=== PATIENT | female | born 1965 | race Caucasian/White ===

== ENCOUNTER 2018-09-11 09:55 | Inpatient (IN) | payer OTHER ==
[~2018-09-11] VITALS: Ht 157.5 cm; Wt 45.4 kg
[2018-09-11 10:00] VITALS: BP 128/106
--- NOTE | 2018-09-11 10:01 | NUR ---
PT AMBULATES TO BED 9
--- NOTE | 2018-09-11 10:12 | NUR ---
Patient being evaluated by physician at bedside.
[2018-09-11] MEDS ORDERED: diphenhydrAMINE 50 MG/ML VIAL IM ONE (10:20)
[2018-09-11] MEDS ORDERED: LORazepam 2 MG/ML VIAL IM ONE (10:20)
[2018-09-11] MEDS ORDERED: NACL 0.9% 1,000 ML IV ONE (10:20)
[2018-09-11] MEDS ORDERED: HALOPERIDOL IM 5 MG/ML VIAL IM ONE (10:20)
--- NOTE | 2018-09-11 10:50 | NUR ---
bib daughter from [facility] was adviced to go to an emergency room with c/o haven't sleep for 4 nights, continually yelling in her language; Per family, pt is threatening to hurt herself and other people. Pt appears to be in manic state, yelling at staff.
[2018-09-11 11:21] LABS: BASOPHILS % (AUTO) 0.6 % (0.0-2.0); EOSINOPHILS % (AUTO) 0.5 % (0.0-4.0); HEMATOCRIT 40.8 % (36-48); HEMOGLOBIN 13.4 g/dL (12.0-16.0); LYMPHOCYTES # (AUTO) 1.3 K/uL (2.5-16.5); LYMPHOCYTES % (AUTO) 18.8 % (20.5-51.1); MEAN CORPUSCULAR HEMOGLOBIN 30 pg (27-31); MEAN CORPUSCULAR HGB CONC 33 g/dL (33-37); MEAN CORPUSCULAR VOLUME 89.7 fL (80-94); MONOCYTES # (AUTO) 0.5 K/uL (0.8-1.0); NEUTROPHILS # (AUTO) 5.1 K/uL (1.8-7.7); NEUTROPHILS % (AUTO) 73.1 % (42.2-75.2); PLATELET COUNT (AUTO) 272 K/uL (140-450); RED BLOOD CELL COUNT(AUTO) 4.54 MIL/uL (4.20-5.40); RED CELL DISTRIBUTION WIDTH 14.6 % (11.6-13.7); WHITE BLOOD COUNT (AUTO) 6.9 K/uL (4.8-10.8)
[2018-09-11 11:32] LABS: ACETONE, SERUM NEGATIVE (NEGATIVE)
[2018-09-11 11:40] LABS: ALBUMIN 3.5 g/dL (3.4-5.0); ANION GAP 16.3 (8-16); ASPARTATE AMINOTRANSFERASE 16 U/L (15-37); CARBON DIOXIDE 23.7 mmol/L (21-32); CHLORIDE 102 mmol/L (98-107); GFR ARICAN-AMERICAN 75 mL/min (>90); GLUCOSE 98 mg/dL (74-106); SODIUM SERUM 139 mmol/L (136-145); TOTAL BILIRUBIN 0.7 mg/dL (0.0-1.0); UREA NITROGEN, BLOOD 18 mg/dL (7-18)
[2018-09-11 11:42] LABS: ACETAMINOPHEN < 0.5 ug/ml (10-30); SALICYLATE < 2.8 mg/dL (2.8-20.0)
[2018-09-11 11:52] LABS: FREE T4 (FREE THYROXINE) 1.17 ng/dL (0.76-1.46); THYROID STIMULATING HORMONE 0.79 uIU/mL (0.34-3.74)
--- NOTE | 2018-09-11 12:10 | NUR ---
XRAY AT BEDSIDE
[2018-09-11] MEDS ORDERED: KCL 20 MEQ/WATER INJ PREMIX 100 ML IV ONE (12:30)
--- NOTE | 2018-09-11 12:34 | NUR ---
PT TAKEN TO CT VIA LARRY
--- NOTE | 2018-09-11 12:53 | NUR ---
pt returned from ct via gurney accompanied by utility technician and returned to rm 9 without incident
[2018-09-11 14:13] LABS: APPEARANCE,URINE CLEAR (CLEAR); BILIRUBIN,URINE NEGATIVE (NEGATIVE); BLOOD, URINE NEGATIVE (NEGATIVE); COLOR,URINE YELLOW (YELLOW); NITRITE, URINE NEGATIVE (NEGATIVE); UGLUCOSE NEGATIVE (NEGATIVE)
[2018-09-11 14:16] LABS: BARBITURATE, URINE NEG. ng/ml (NEG <=200); BENZODIAZEPINE, URINE NEG. ng/mL (NEG <=200); CANNABINOID, URINE NEG. ng/mL (NEG <=50); COCAINE, URINE NEG. ng/mL (NEG <=300); OPIATE, URINE NEG. ng/mL (NEG <=2000); PHENCYCLIDINE SCREEN,URINE NEG. ng/mL (NEG <=25)
[2018-09-11 14:19] LABS: RBC,URINE 0-5 (RARE) /HPF (0-5)
[2018-09-11 14:21] LABS: LEUKOCYTE ESTERASE ,URINE 1+ (NEGATIVE); WBC,URINE 0-5 (RARE) /HPF (0-5)
--- NOTE | 2018-09-11 14:30 | NUR ---
PATIENT RESTING, DAUGHTER AT BEDSIDE.
--- NOTE | 2018-09-11 15:18 | NUR ---
TELEPSYCH INITIATED AT BEDSIDE. DAUGHTER AT BEDSIDE TO SERVE YARD INSPECTOR.
[2018-09-11] MEDS ORDERED: ACETAMINOPHEN 325 MG TAB PO PRN (15:30)
[2018-09-11] MEDS ORDERED: LORazepam 2 MG/ML VIAL IM/IVP PRN (15:30)
[2018-09-11] MEDS ORDERED: DOCUSATE SODIUM 100 MG GELCAP PO PRN (15:30)
[2018-09-11] MEDS ORDERED: HYDROcodone/APAP 5/325 MG 1 TAB TAB PO PRN (15:30)
[2018-09-11] MEDS ORDERED: ONDANSETRON 4 MG/2 ML VIAL IM/IVP PRN (15:30)
--- NOTE | 2018-09-11 15:58 | NUR ---
TELEPSYCH DOCTOR CALLED BACK AND CLEARED PATIENT. RECOMMENDED DISCHARGE TO [facility]. ED MD WILL BE ADMITING PT FOR OBSERVATION DUE TO HIGH LACTIC ACID LEVELS. PT FAMILY MADE AWARE AND VERBALIZED UNDERSTANDING.
--- NOTE | 2018-09-11 16:14 | NUR ---
1609 PT TAKEN TO MED FLOOR BY RN BRENNA AND EMT XIAO
[2018-09-11 16:15] VITALS: BP 104/56
--- NOTE | 2018-09-11 16:15 | NUR ---
Patient will be admitted to care of DR. ECKERT. Admited to MED SURG. Will go to room 110B. Belongings list completed. Report to ALLEGRA.
--- NOTE | 2018-09-11 16:15 | NUR ---
RECEIVED REPORT FROM ED RN. PT ARRIVED VIA GURNEY. SPEAKS LAOTIAN AND BRAZILIAN. AMBULATORY. SKIN INTACT. AOX2. COOPERATIVE WITH PERIODS OF CONFUSION AND PERIODS OF AGITATION. HX: SCHIZOPHRENIA. FLAT AFFECT. PER DAUGHTER AT BEDSIDE, PT HAS ADMITTED TO AUDITORY AND VISUAL HALLUCINATIONS. PT DENIES SUICIDAL IDEATION AT THIS TIME. K+ RIDER FROM ED INFUSING AT 50ML/HR. IV SITE PATENT AND ASYMPTOMATIC. PLACED ON FALL PRECAUTIONS. ALL SAFETY PRECAUTIONS IN PLACE, WILL CONTINUE TO MONITOR.
[2018-09-11] MEDS: NACL 0.9% 1,000 ML IV SCH (17:17)
--- NOTE | 2018-09-11 17:22 | NUR ---
STARTED RUNNING K RIDER @50 ML/HR WITH NS IVF AT 50 ML/HR DUE TO PT C/O OF IV SITE PAIN.
[2018-09-11 17:59] LABS: MAGNESIUM 1.9 mg/dL (1.8-2.4); PHOSPHORUS 3.7 mg/dL (2.5-4.9)
--- NOTE | 2018-09-11 18:18 | NUR ---
PER LAB, BLOOD CULTURES ALREADY DRAWN. WILL ADMIN SCHEDULED ABX ORDERED.
--- NOTE | 2018-09-11 18:48 | NUR ---
VERIFIED WITH LAB THAT BLOOD CULTURES X2 HAS BEEN DRAWN.
--- NOTE | 2018-09-11 19:21 | NUR ---
ENDORSED POC TO PRODUCT GRADER RN. PT IN STABLE CONDITION.
[2018-09-11 20:10] VITALS: BP 102/56
--- NOTE | 2018-09-11 20:10 | NUR ---
SEEN PT ASLEEP BUT EASILY AROUSABLE. DAUGHTER AT BEDSIDE AND WILL STAY FOR TONIGHT. PT'S DAUGHTER STATED, " SHE HASN'T SLEPT FOR 4 DAYS AND I JUST WANT HER TO SLEEP TONIGHT." INITIAL ASSESSMENT DONE. ASKED DAUGHTER, WHEN WAS HER LAST BM. SHE SAID " PROBABLY A WEEK AGO BECAUSE SHE HASN'T BEEN EATING FOR A WEEK, BUT SHE ATE TODAY THOUGH." VITAL SIGNS CHECKED. PER DAUGHTER, PT CAN WALK AND GO TO THE BATHROOM. PLAN OF CARE DISCUSSED AND DAUGHTER VERBALIZED UNDERSTANDING. SAFETY REINFORCED. WILL CONTINUE TO MONITOR. INFORMED DAUGHTER TO CALL WHEN PT IN NEED, DAUGHTER VERBALIZED UNDERSTANDING.
[2018-09-12 04:35] VITALS: BP 106/66
--- NOTE | 2018-09-12 04:55 | NUR ---
SEEN PT ASLEEP BUT AROUSABLE. DAUGHTER AT BEDSIDE. VITAL SIGNS CHECKED. ASKED DAUGHTER IF PT WENT TO THE BATHROOM. DAUGHTER SAID "NO". TOLD DAUGHTER WHEN PT GOES TO THE BATHROOM TO LET THE NURSE KNOW BECAUSE THE DOCTOR WANTS TO CHECK PT'S BP STANDING UP AND SITTING. DAUGHTER VERBALIZED UNDERSTANDING.
--- NOTE | 2018-09-12 06:55 | NUR ---
PT AWAKE SITTING ON THE EDGE OF THE BED. BLOOD SUGAR CHECKED: 133. NO COVERAGE NEEDED. PO MEDICATIONS GIVEN W/ TEACHINGS. PT WAITING FOR BREAKFAST. PT DENIES ANY NEEDS. Addendum: 09/12/18 at 0704 by Sania Aranda RN WRONG PT DOCUMENTATION
--- NOTE | 2018-09-12 07:04 | NUR ---
WILL ENDORSE CARE TO DAYSHIFT NURSE.
--- NOTE | 2018-09-12 07:19 | NUR ---
PATIENT HAS BEEN SCREENED AND CATEGORIZED HIGH NUTRITION RISK. PATIENT WILL BE SEEN WITHIN 1-2 DAYS OF ADMISSION. 09/12/18-09/13/18 JACKELINE VALDIVIA MS, RDN
--- NOTE | 2018-09-12 07:50 | NUR ---
PATIENT WAS AWAKE, TALKING TO HERSELF. RESPIRATION EVEN, UNLABOR ON ROOM AIR. SKIN DRY AND WARM. IV PATENT AND INTACT. DENIED PAIN AT THIS TIME. PLAN OF CARE WAS DISCUSSED WITH PATIENT AND FAMILY. BED AT LOW POSITION SIDE RAILS UP. CALL LIGHT WITHIN REACH
[2018-09-12 07:54] LABS: BASOPHILS % (AUTO) 0.5 % (0.0-2.0); EOSINOPHILS # (AUTO) 0.1 K/uL (0-0.4); EOSINOPHILS % (AUTO) 1.6 % (0.0-4.0); HEMATOCRIT 37.3 % (36-48); HEMOGLOBIN 12.2 g/dL (12.0-16.0); LYMPHOCYTES # (AUTO) 1.4 K/uL (2.5-16.5); LYMPHOCYTES % (AUTO) 26.5 % (20.5-51.1); MEAN CORPUSCULAR HEMOGLOBIN 30 pg (27-31); MEAN CORPUSCULAR HGB CONC 33 g/dL (33-37); MEAN CORPUSCULAR VOLUME 90.5 fL (80-94); MONOCYTES # (AUTO) 0.4 K/uL (0.8-1.0); MONOCYTES % (AUTO) 7.5 % (1.7-9.3); NEUTROPHILS # (AUTO) 3.4 K/uL (1.8-7.7); NEUTROPHILS % (AUTO) 63.9 % (42.2-75.2); PLATELET COUNT (AUTO) 218 K/uL (140-450); RED BLOOD CELL COUNT(AUTO) 4.13 MIL/uL (4.20-5.40); RED CELL DISTRIBUTION WIDTH 15.3 % (11.6-13.7); WHITE BLOOD COUNT (AUTO) 5.3 K/uL (4.8-10.8)
[2018-09-12 08:00] VITALS: BP_SYST 104; BP_SYST 110; BP_SYST 111; BP_DIAS 56; BP_DIAS 69; BP_DIAS 70
[2018-09-12 08:07] LABS: ANION GAP 9.6 (8-16); CARBON DIOXIDE 27.3 mmol/L (21-32); CREATININE 0.8 mg/dL (0.6-1.3); POTASSIUM 3.9 mmol/L (3.5-5.1)
[2018-09-12] MEDS: NACL 0.9% 1,000 ML IV SCH ×2 (09:31→20:02)
--- NOTE | 2018-09-12 10:00 | NUR ---
PATIENT WAS RESTING COMFORTABLY. RESPIRATION EVEN, UNLABOR ON ROOM AIR. NO DISTRESS NOTED AT THIS TIME
[2018-09-12 11:33] LABS: CHOL/HDL RATIO 3.7 (1-4.5)
--- NOTE | 2018-09-12 11:52 | NUR ---
CALLED THE PSYCH CHAIN SALES CONSULTANT SERVICE SPOKE WITH DREA NOTIFIED PSYCH CONSULT SHE SAID DR SQUIRES IS CHAIN SALES CONSULTANT SHE WILL PAGE HIM.
--- NOTE | 2018-09-12 12:10 | NUR ---
PATIENT WAS AWAKE, BECAME RESTLESS, AND AGITATED, WANTING "ALCOHOL AND COFFEE" PER DAUGHTER. COFFEE WAS OFFERED. MED WAS GIVEN PER ORDER
--- NOTE | 2018-09-12 12:58 | NUR ---
09/12/18 RD INITIAL ASSESSMENT COMPLETED PLEASE REFER TO NUTRITION ASSESSMENT UNDER CARE ACTIVITY FOR ESTIMATED NUTRITIONAL NEEDS. RD RECOMMENDATIONS: 1. CONTINUE ON REGULAR DIET TOLERATED. 2. CONSULT RDN PRN. 3. RD WILL F/U 3-5 DAYS; MODERATE RISK. JACKELINE VALDIVIA MS, RDN
--- NOTE | 2018-09-12 14:15 | NUR ---
PATIENT WAS SLEEPING COMFORTABLY. RESPIRATION EVEN, UNLABOR ON ROOM AIR. NO DISTRESS NOTED AT THIS TIME. FAMILY AT BEDSIDE. CALL LIGHT WITHIN REACH
[2018-09-12 16:00] VITALS: BP 98/56
--- NOTE | 2018-09-12 16:00 | NUR ---
PATIENT WAS AWAKE, ALERT. RESPIRATION EVEN, UNLABOR ON ROOM AIR. DENIED PAIN AT THIS TIME. FAMILY AT BEDSIDE. CALL LIGHT WITHIN REACH
--- NOTE | 2018-09-12 18:42 | NUR ---
PATIENT WAS SLEEPING COMFORTABLY. RESPIRATION EVEN, UNLABOR ON ROOM AIR. IV PATENT AND INTACT. MED WAS GIVEN PER ORDER. NO DISTRESS NOTED AT THIS TIME. FAMILY AT BEDSIDE. CALL LIGHT WITHIN REACH
--- NOTE | 2018-09-12 19:27 | NUR ---
RECEIVED BEDSIDE REPORT FROM ALLEGRA CISNEROS, PATIENT IN BED, FAMILY AT BEDSIDE, ON RA, NO SIGNS OF ACUTE DISTRESS, IV IN LEFT HAND 22G INFUSING ROCEPHIN AT 100 ML/ HR. PATIENT BECAME AGITATED DURING ASSESSMENT. EXPLAINED PLAN OF CARE TO FAMILY. UPDATED BORED, CALL LIGHT WITHIN REACH. WILL CONTINUE TO MONITOR.
--- NOTE | 2018-09-12 19:27 | NUR ---
ENDORSEMENT GIVEN TO SALES AND MARKETING AGENT NURSE. PATIENT IS STABLE AT THIS TIME
[2018-09-12] MEDS: OLANZapine 5 MG TAB PO SCH (20:01)
[2018-09-12] MEDS ORDERED: QUEtiapine FUMARATE 25 MG TAB PO SCH (21:00)
--- NOTE | 2018-09-12 21:00 | NUR ---
FAMILY AT BEDSIDE, QUESTIONS ANSWERED REGARDING ZYPREXA, CALL LIGHT WITHIN REACH, WILL CONTINUE TO MONITOR.
--- NOTE | 2018-09-12 23:50 | NUR ---
PATIENT ASLEEP IN BED, FAMILY AT BEDSIDE, V/S TAKEN, WILL CONTINUE TO MONITOR.
[2018-09-12 23:53] VITALS: BP 104/57
--- NOTE | 2018-09-13 01:44 | NUR ---
PATIENT SLEEPING IN BED, FAMILY AT BEDSIDE, CALL LIGHT WITHIN REACH, WILL CONTINUE TO MONITOR.
--- NOTE | 2018-09-13 02:05 | NUR ---
IV HIGH PRESSURE ALARM, FLUSHED IV WITH 10 ML NS, PATIENT DENIES PAIN, WILL CONTINUE TO MONITOR.
--- NOTE | 2018-09-13 04:16 | NUR ---
PATIENT ASLEEP IN BED, CALL LIGHT WITHIN REACH, WILL CONTINUE TO MONITOR.
--- NOTE | 2018-09-13 07:15 | NUR ---
RECEIVED PT REPORT FROM WORKERS COMPENSATION ADJUSTER NURSE. PT IS SLEEPING AT THIS TIME, NO S/S OF DISTRESS, SOB, OR C/O PAIN. IS AT BEDSIDE. IV SITE NOTED ON THE L HAND, 22 GAUGE, INFUSING NS 60 ML/HR. PT ON ROOM AIR. SKIN IS INTACT. PT ON REGULAR DIET. FALL PRECAUTIONS IN PLACE. CALL LIGHT WITHIN REACH. WILL CONTINUE TO MONITOR.
--- NOTE | 2018-09-13 07:35 | NUR ---
ENDORSED PATIENT TO DAY SHIFT NURSE, PATIENT STABLE.
[2018-09-13 08:00] VITALS: BP 114/63
[2018-09-13] MEDS: OLANZapine 5 MG TAB PO SCH (08:50)
--- NOTE | 2018-09-13 09:00 | NUR ---
PT ATE ABOUT 95% OF HER BREAKFAST. IS AT BEDSIDE. PT IS IN NO DISTRESS, NO SOB, NO C/O PAIN. RESTING COMFORTABLY IN BED AT THIS TIME. IV IS PATENT AND INTACT, NS INFUSING WELL.
[2018-09-13 10:35] LABS: BASOPHILS % (AUTO) 0.3 % (0.0-2.0); EOSINOPHILS # (AUTO) 0.2 K/uL (0-0.4); EOSINOPHILS % (AUTO) 2.7 % (0.0-4.0); HEMATOCRIT 35.3 % (36-48); HEMOGLOBIN 11.6 g/dL (12.0-16.0); LYMPHOCYTES # (AUTO) 1.1 K/uL (2.5-16.5); LYMPHOCYTES % (AUTO) 16.8 % (20.5-51.1); MEAN CORPUSCULAR HEMOGLOBIN 30 pg (27-31); MEAN CORPUSCULAR HGB CONC 33 g/dL (33-37); MEAN CORPUSCULAR VOLUME 90.6 fL (80-94); MONOCYTES # (AUTO) 0.4 K/uL (0.8-1.0); MONOCYTES % (AUTO) 6.1 % (1.7-9.3); NEUTROPHILS # (AUTO) 4.7 K/uL (1.8-7.7); NEUTROPHILS % (AUTO) 74.1 % (42.2-75.2); PLATELET COUNT (AUTO) 184 K/uL (140-450); RED CELL DISTRIBUTION WIDTH 14.7 % (11.6-13.7); WHITE BLOOD COUNT (AUTO) 6.4 K/uL (4.8-10.8)
[2018-09-13 10:44] LABS: ANION GAP 8.6 (8-16); CARBON DIOXIDE 28.6 mmol/L (21-32); CREATININE 0.8 mg/dL (0.6-1.3); POTASSIUM 3.2 mmol/L (3.5-5.1)
[2018-09-13 10:46] LABS: PHOSPHORUS 3.5 mg/dL (2.5-4.9)
--- NOTE | 2018-09-13 11:24 | NUR ---
PT RESTING QUIETLY IN BED, NO S/S OF DISTRESS, NO SOB. IS AT BEDSIDE. WILL CONTINUE TO MONITOR. CALL LIGHT IS WITHIN REACH.
--- NOTE | 2018-09-13 13:20 | NUR ---
PT RESTING IN BED COMFORTABLY, NO S/S OF DISTRESS OR C/O PAIN. FAMILY MEMBERS VISITING AT BEDSIDE. IV IS INFUSING WELL. CALL LIGHT IS WITHIN REACH. FALL PRECAUTIONS IN PLACE. WILL CONTINUE TO MONITOR.
[2018-09-13] MEDS ORDERED: OLAN5TAB30 PO (14:58)
[2018-09-13 15:32] VITALS: BP 101/65
--- NOTE | 2018-09-13 15:45 | NUR ---
DR LOVETT HAS CLEARED PT FOR DISCHARGE.
--- NOTE | 2018-09-13 16:10 | NUR ---
PT HAS DISCHARGED. PT AND DAUGHTER WERE GIVEN DISCHARGE INSTRUCTIONS AND THE DISCHARGE PRESCRIPTION, TO WHICH THEY VERBALIZED UNDERSTANDING. DISCHARGE PAPERWORK SIGNED BY DAUGHTER. PT'S IV SITE DC'D, WRIST BANDS REMOVED. PT HAD ALREADY RECEIVED THE FLU VACCINE IN JUNE OF THIS YEAR. PT DOES NOT QUALIFY FOR PNEUMONIA VACCINE DUE TO AGE. PT LEFT WITH ALL HER BELONGINGS IN A STABLE CONDITION, ACCOMPANIED BY DAUGHTER.
== END 2018-09-13 16:10 | disposition home or self-care (01) | DRG 720 ==
LOC: MED 09:55 → MTU 15:35
PROVIDERS: ADMIT General Practice; ATTEND General Practice
DX: A41.9 Sepsis, unspecified organism (principal); G93.41 Metabolic encephalopathy; F20.9 Schizophrenia, unspecified; E86.0 Dehydration; E87.6 Hypokalemia; N39.0 Urinary tract infection, site not specified; I16.1 Hypertensive emergency; Z91.14 Patient's other noncompliance with medication regimen; Z83.3 Family history of diabetes mellitus
CPT/HCPCS: 36415; 70450; 71045; 80048; 80053; 80305; 81001; 82009; 82140; 82550; 83036; 83605; 83690; 83735; 83880; 84100; 84134; 84439; 84443; 84479; 84484; 85025; 85610; 85730; 87040; 87081; 87086; 93005; 93880; 96361; 96365; 96366; 96372; 99285; C1758; G0480; G0482; J0696; J1200; J1630; J2060; J3480; J7030; J7042; J7060; Q0092

== ENCOUNTER 2018-09-15 18:08 | Inpatient (IN) | payer OTHER ==
[~2018-09-15] VITALS: Ht 160 cm; Wt 56.7 kg
[2018-09-15] MEDS: ASPIRIN 81 MG TAB.CHEW PO ONE (00:40)
[~2018-09-15 18:08] MED LIST: OLAN5TAB30 PO
[2018-09-15 18:09] VITALS: BP 102/75
--- NOTE | 2018-09-15 18:09 | NUR ---
RAFAT BLAS ALS TO ER BED 09
--- NOTE | 2018-09-15 18:18 | NUR ---
52 YO F PT BIB EMS C/O DRUG INGESTION. POSSIBLE INTAKE OF ZYPREXA 5MG (30 TABLETS). PT DOES NOT SPEAK UPPER SORBIAN, PER DAUGHTER PT HAD NO THOUGHTS OF SI. PT SPEECH APPEARS CLEAR. PT IS AAOX4 PER DAUGHTER. DTR STATES THAT PT IS NEURO TO BASELINE AND ACTING APPROPRIATELY. PT RR EVEN AND UNLABORED LUNGS BL CLEAR, CMS INTACT. NO N/V/D. PERRLA INTACT, PUPILS 3MM. ABD SOFT, NON-TENDER. BOWEL SOUNDS ACTIVE X 4. ER MD NOTIFIED OF PT STATUS. PT NEEDS MET. SAFETY PRECAUTIONS IN PLACE. DTR AT BEDSIDE. WILL CONTINUE TO CLOSELY MONITOR.
--- NOTE | 2018-09-15 18:20 | NUR ---
CONTACTED POISON CONTROL. SPOKE WITH BRENNA, RECOMMENDED MONITOR, MONITOR FOR CANDY CUTTER HAND DEPRESSION, DROWSINESS, RECOMMENDED CHARCOAL, MONITOR FOR ANTICHOLINERGIC EFFECTS, AGITATION, DELIRIUM AND HYPOTENSION. MONITOR FOR A 6 HOUR PERIOD.
[2018-09-15] MEDS ORDERED: NACL 0.9% 1,000 ML IV ONE (18:35)
--- NOTE | 2018-09-15 18:50 | NUR ---
pt restless in the hospital [facility] at this time. daughter and son at bedside. pt vss, rr even and unlabored. safety precautions in place. will continue to closely monitor.
[2018-09-15 19:07] LABS: BASOPHILS # (AUTO) 0.1 K/uL (0.00-0.22); BASOPHILS % (AUTO) 0.8 % (0.0-2.0); EOSINOPHILS # (AUTO) 0.1 K/uL (0-0.4); EOSINOPHILS % (AUTO) 1.1 % (0.0-4.0); HEMATOCRIT 36.6 % (36-48); HEMOGLOBIN 12.1 g/dL (12.0-16.0); LYMPHOCYTES # (AUTO) 1.7 K/uL (2.5-16.5); LYMPHOCYTES % (AUTO) 28.7 % (20.5-51.1); MEAN CORPUSCULAR HEMOGLOBIN 30 pg (27-31); MEAN CORPUSCULAR HGB CONC 33 g/dL (33-37); MONOCYTES # (AUTO) 0.5 K/uL (0.8-1.0); MONOCYTES % (AUTO) 8.1 % (1.7-9.3); NEUTROPHILS # (AUTO) 3.7 K/uL (1.8-7.7); NEUTROPHILS % (AUTO) 61.3 % (42.2-75.2); PLATELET COUNT (AUTO) 173 K/uL (140-450); RED BLOOD CELL COUNT(AUTO) 4.07 MIL/uL (4.20-5.40); RED CELL DISTRIBUTION WIDTH 14.7 % (11.6-13.7)
--- NOTE | 2018-09-15 19:12 | NUR ---
report given to ALLEGRA field
[2018-09-15 19:28] LABS: ANION GAP 12.1 (8-16); ASPARTATE AMINOTRANSFERASE 17 U/L (15-37); CARBON DIOXIDE 25.7 mmol/L (21-32); CHLORIDE 106 mmol/L (98-107); CREATININE 0.8 mg/dL (0.6-1.3); GFR ARICAN-AMERICAN 98 mL/min (>90); GLUCOSE 103 mg/dL (74-106); SODIUM SERUM 141 mmol/L (136-145); TOTAL BILIRUBIN 0.3 mg/dL (0.0-1.0); UREA NITROGEN, BLOOD 20 mg/dL (7-18)
[2018-09-15 19:30] LABS: POTASSIUM 2.8 mmol/L (3.5-5.1)
--- NOTE | 2018-09-15 20:05 | NUR ---
# 14 FR Urinary catheter inserted utilizing sterile technique. Immediate return. Urine sample collected and sent to lab. Pt tolerated procedure well.
[2018-09-15 20:55] LABS: APPEARANCE,URINE CLEAR (CLEAR); BILIRUBIN,URINE NEGATIVE (NEGATIVE); BLOOD, URINE NEGATIVE (NEGATIVE); COLOR,URINE YELLOW (YELLOW); LEUKOCYTE ESTERASE ,URINE NEGATIVE (NEGATIVE); NITRITE, URINE NEGATIVE (NEGATIVE); UGLUCOSE NEGATIVE (NEGATIVE)
[2018-09-15 21:02] LABS: BARBITURATE, URINE NEG. ng/ml (NEG <=200); BENZODIAZEPINE, URINE NEG. ng/mL (NEG <=200); CANNABINOID, URINE NEG. ng/mL (NEG <=50); COCAINE, URINE NEG. ng/mL (NEG <=300); OPIATE, URINE NEG. ng/mL (NEG <=2000); PHENCYCLIDINE SCREEN,URINE NEG. ng/mL (NEG <=25)
[2018-09-15] MEDS ORDERED: POTASSIUM CHLORIDE 10 MEQ TABER PO ONE (21:40)
--- NOTE | 2018-09-15 21:42 | NUR ---
LASHA FROM [facility] CALLED. UPDATE ON VS, LABS AND MENTAL STATUS. RECOMMENDATIONS: TYLENOL AND ASPIRIN LEVELS. ER MD MADE AWARE. WILL CONTINUE TO MONITOR.
[2018-09-15] MEDS ORDERED: POTASSIUM CHLORIDE 20% 40 MEQ/15 ML UDC PO ONE (22:25)
[2018-09-15 22:45] LABS: ACETAMINOPHEN < 0.5 ug/ml (10-30); SALICYLATE < 2.8 mg/dL (2.8-20.0)
--- NOTE | 2018-09-15 23:06 | NUR ---
Dr. Lee evaluating patient at bedside.
[2018-09-15] MEDS ORDERED: ONDANSETRON 4 MG/2 ML VIAL IM/IVP PRN (23:25)
[2018-09-15] MEDS ORDERED: ACETAMINOPHEN 325 MG TAB PO PRN (23:25)
[2018-09-15] MEDS ORDERED: DOCUSATE SODIUM 100 MG GELCAP PO PRN (23:25)
[2018-09-15] MEDS ORDERED: HYDROcodone/APAP 7.5/325 MG 1 TAB PO PRN (23:25)
[2018-09-15] MEDS ORDERED: LORazepam 2 MG/ML VIAL IVP ONE (23:35)
[2018-09-15] MEDS ORDERED: LORazepam 2 MG/ML VIAL IVP PRN (23:35)
[2018-09-15] MEDS ORDERED: KCL 20 MEQ/WATER INJ PREMIX 200 ML IV ONE (23:40)
--- NOTE | 2018-09-16 | NUR ---
Patient will be admitted to care of Dr. Molina. Admited to Tele. Will go to room 120B. Belongings list completed. Report to Ignacio DINH.
--- NOTE | 2018-09-16 | NUR ---
ADMITTED THIS 52 YEAR OLD FEMALE FROM ER PER LARRY WITH CC OF DRUG INGESTION (ZYPREXA), TRANSFERRED TO BED, ASSESSMENT DONE, HX OBTAINED FROM DAUGHTER YUNI, PT AWAKE, OCCASIONALLY MUMBLING WITH INCOMPREHENSIBLE WORDS PER FAMILY MEMBERS, RESTLESS AT TIMES WITH JERKY MOVEMENTS OF ARMS AND LEGS, UNABLE TO TAKE VITAL SIGNS AT THIS TIME DUE TO PT'S CONDITION, WILL GIVE ATIVAN PRN ORDERED, FAMILY MEMBERS AT BEDSIDE TO ASSIST IN TRANSLATING, SAFETY MEASURES IN PLACE, SIDE RAILS PADDED AND UP FOR SEIZURE AND FALL PRECAUTION, CALL LIGHT WITHIN REACH.
[2018-09-16] MEDS: DEXT 5% /NACL 0.9% 1,000 ML IV SCH ×3 (00:17→22:25)
[2018-09-16 00:30] VITALS: BP 131/78
[2018-09-16] MEDS: ASPIRIN 81 MG TAB.CHEW PO ONE (00:30)
--- NOTE | 2018-09-16 00:30 | NUR ---
ATIVAN IVP GIVEN ORDERED, WITH GOOD RESULT, PT SLEEPING BUT WITH OCCASIONAL JERKY MOVEMENTS, VITAL SIGNS STABLE, IVF OF D5 NS AT 60ML STARTED AND K-RIDER IVPB INITIATED, SISTER AND DAUGHTER AT BEDSIDE, ALL NEEDS ATTENDED.
[2018-09-16 00:39] LABS: PROTHROMBIN TIME 9.7 secs (10.8-13.4)
--- NOTE | 2018-09-16 00:40 | NUR ---
PT UNABLE TO TAKE ASPIRIN AT THIS TIME, PT SLEEPING AFTER ATIVAN WAS GIVEN, DR CHAN MADE AWARE.
[2018-09-16 00:41] LABS: CHOL/HDL RATIO 3.2 (1-4.5); FREE T4 (FREE THYROXINE) 0.93 ng/dL (0.76-1.46); MAGNESIUM 1.8 mg/dL (1.8-2.4); PHOSPHORUS 2.7 mg/dL (2.5-4.9); THYROID STIMULATING HORMONE 1.16 uIU/mL (0.34-3.74)
[2018-09-16] MEDS ORDERED: MECLIZINE 25 MG TAB PO PRN (02:35)
--- NOTE | 2018-09-16 02:49 | NUR ---
PT SLEEPING BUT OCCASIONALLY TWITCHING AND JERKING MOVEMENT OF THE ARMS AND LEGS NOTED, 2ND BAG OF K-RIDER STARTED.
--- NOTE | 2018-09-16 03:10 | NUR ---
PT TAKEN BY BED TO CT DEPT FOR CT OF HEAD AND ABDOMEN/PELVIS, ACCOMPANIED BY CHEMICAL PRODUCTION ENGINEER GWENDOLYN AND SISTER.
--- NOTE | 2018-09-16 03:51 | NUR ---
PT BACK FROM CT DEPT, PT SLEEPING WITH OCCASIONAL TWITCHING AND JERKING MOVEMENT, RESUMED IVF AT 100ML/H AND K-RIDER IVPB, PT MUMBLING AND RESTLESS DURING VITAL SIGNS TAKING, SISTER AT BEDSIDE TO CALM PT DOWN, VITAL SIGNS STABLE, UNABLE TO DO ORTHOSTATIC VITAL SIGNS DUE TO PT'S CONDITION, WILL ENDORSE, PT INCONTINENT OF URINE, PERINEAL CARE DONE BY JAVA ENGINEER, CONTINUE TO MONITOR CLOSELY.
[2018-09-16 04:00] VITALS: BP 132/68
--- NOTE | 2018-09-16 05:11 | NUR ---
PT RESTLESS AND AGITATED, DR CHAN MADE AWARE, WILL ORDER ATIVAN 1MG PRN FOR AGITATION, WILL CARRY OUT ORDER.
[2018-09-16] MEDS: LORazepam 2 MG/ML VIAL IVP PRN (05:16)
--- NOTE | 2018-09-16 06:20 | NUR ---
PT SLEEPING WITH OCCASIONAL RESTLESSNESS, ST ON TELE 110'S WHEN RESTLESS BUT GOES DOWN TO 90'S WHEN CALM, NO DISTRESS NOTED, FAMILY MEMBERS AT BEDSIDE, IVF INFUSING WELL, MONITORED CLOSELY.
--- NOTE | 2018-09-16 07:10 | NUR ---
RECEIVED PT REPORT FROM LICENSED SURVEYOR NURSE AUBRIE. OT IS ASLEEP AT THIS TIME, WITH FAMILY MEMBERS AT BEDSIDE. NO S/S OF ACUTE DISTRESS, SOB, OR C/O PAIN NOTED. PT IS ON ROOM AIR, SKIN IS INTACT. SEIZURE PRECAUTIONS IN PLACE. IV SITE NOTED ON THE R FA, 20 G, INFUSING D5NS 100 ML/HR. PT IS CURRENTLY NPO. BED LOW, CALL LIGHT WITHIN REACH. WILL CONTINUE TO MONITOR.
[2018-09-16 07:20] LABS: BASOPHILS % (AUTO) 0.2 % (0.0-2.0); EOSINOPHILS % (AUTO) 0.1 % (0.0-4.0); HEMOGLOBIN 13.2 g/dL (12.0-16.0); LYMPHOCYTES # (AUTO) 0.5 K/uL (2.5-16.5); LYMPHOCYTES % (AUTO) 4.8 % (20.5-51.1); MEAN CORPUSCULAR HEMOGLOBIN 30 pg (27-31); MEAN CORPUSCULAR HGB CONC 32 g/dL (33-37); MEAN CORPUSCULAR VOLUME 91.4 fL (80-94); MONOCYTES # (AUTO) 0.4 K/uL (0.8-1.0); MONOCYTES % (AUTO) 4.4 % (1.7-9.3); NEUTROPHILS # (AUTO) 8.7 K/uL (1.8-7.7); NEUTROPHILS % (AUTO) 90.5 % (42.2-75.2); PLATELET COUNT (AUTO) 194 K/uL (140-450); RED BLOOD CELL COUNT(AUTO) 4.49 MIL/uL (4.20-5.40); RED CELL DISTRIBUTION WIDTH 15.2 % (11.6-13.7); WHITE BLOOD COUNT (AUTO) 9.6 K/uL (4.8-10.8)
--- NOTE | 2018-09-16 07:27 | NUR ---
PT SLEEPING, NO SIGNS OF DISTRESS, IVF INFUSING WELL, FAMILY MEMBERS AT BEDSIDE, REPORT GIVEN TO GWENDOLYN DINH FOR CONTINUITY OF CARE.
[2018-09-16 07:34] LABS: ANION GAP 14.3 (8-16); CARBON DIOXIDE 24.3 mmol/L (21-32); CREATININE 0.8 mg/dL (0.6-1.3); POTASSIUM 3.6 mmol/L (3.5-5.1)
[2018-09-16 08:00] VITALS: BP 98/73
--- NOTE | 2018-09-16 08:48 | NUR ---
PATIENT HAS BEEN SCREENED AND CATEGORIZED HIGH NUTRITION RISK. PATIENT WILL BE SEEN WITHIN 1-2 DAYS OF ADMISSION. 09/16/18-09/17/[address]
--- NOTE | 2018-09-16 09:24 | NUR ---
PT HAVING PT EVAL AT THIS TIME. Addendum: 09/16/18 at 1016 by Adilia Velazco RN PER PHYSICAL THERAPIST, PATIENT WAS NOT ABLE TO GET UP FOR PT EVAL. PATIENT IS ASLEEP. DAUGHTERS AT BEDSIDE.
--- NOTE | 2018-09-16 09:26 | NUR ---
DR BAEZ NOTIFIED OF PT'S TROPONIN 1.199
--- NOTE | 2018-09-16 09:45 | NUR ---
VITAL SIGNS RECHECKED, CURRENT FINDINGS: BP 113/76, O2 92, TEMP 100.6, HR 103, RR 18. Addendum: 09/16/18 at 1015 by Adilia Velazco RN DR BEAZ NOTIFIED OF PT'S ELEVATED TEMP. COOLING MEASURES IN PLACE. PT IS CURRENTLY SLEEPING AND UNABLE TO TAKE PO MEDICINE. WILL CONTINUE TO MONITOR PT.
--- NOTE | 2018-09-16 09:56 | NUR ---
PT CURRENTLY HAVING EKG
[2018-09-16] MEDS ORDERED: ENOXAPARIN 60 MG/0.6 ML SYR SUBQ SCH (10:30)
[2018-09-16] MEDS: KETOROLAC 15 MG/ML VIAL IVP PRN ×2 (11:13→22:20)
--- NOTE | 2018-09-16 11:22 | NUR ---
VITAL SIGNS AND TEMPERATURE RECHECKED, PT'S CURRENT TEMP IS 99.9. COOLING MEASURES STILL IN PLACE. WILL CONTINUE TO MONITOR.
[2018-09-16 12:00] VITALS: BP 106/84
--- NOTE | 2018-09-16 12:53 | NUR ---
RECHECKED PT'S TEMP, IT IS 100.6 AT THIS TIME. COOLING MEASURES IN PLACE, BLANKETS OFF, ROOM COOLED DOWN. IV TORADOL ALREADY ADMINISTERED AT 11:15. WILL CONTINUE TO MONITOR. MD IS AWARE OF PT'S ELEVATED TEMP.
--- NOTE | 2018-09-16 13:41 | NUR ---
IS AWARE OF PT'S INCREASED TROPONIN OF 1.793
--- NOTE | 2018-09-16 13:58 | NUR ---
ORAL TEMP RECHECKED, 98.6 AT THIS TIME. WILL CONTINUE TO MONITOR PT. Addendum: 09/16/18 at 1405 by Adilia Velazco RN PT IS CONTINUING TO SLEEP, DAUGHTERS ARE AT BEDSIDE.
--- NOTE | 2018-09-16 15:21 | NUR ---
CHECKED PT'S RECTAL TEMP - 102.5. MD IS AWARE. COOLING MEASURES IN PLACE. ROOM COOLED DOWN. ALL BLANKETS TAKEN OFF EXCEPT FOR ONE THIN SHEET FOR PT'S COMFORT. DAUGHTERS AT BEDSIDE. WILL CONTINUE TO MONITOR.
--- NOTE | 2018-09-16 15:39 | NUR ---
JUST RECHECKED PT'S VITALS. FINDINGS ARE: BP 114/89, TEMP 101.1 (AXILLARY), HR 117, O2 92% (ROOM AIR), RESP 18. ICE PACKS STILL IN PLACE. PT IS SLEEPING AND APPEARS TO BE SHAKING IF SHE IS COLD. DAUGHTERS ARE AT BEDSIDE. CALL LIGHT WITHIN REACH. WILL CONTINUE TO MONITOR. MD IS AWARE OF ELEVATED TEMP.
[2018-09-16 16:00] VITALS: BP 114/89
[2018-09-16] MEDS ORDERED: KETOROLAC 15 MG/ML VIAL IVP SCH (16:05)
[2018-09-16] MEDS ORDERED: KETOROLAC 30 MG/ML VIAL IVP SCH (16:10)
--- NOTE | 2018-09-16 16:20 | NUR ---
ADMINISTERED 15 MG TORADOL IV FOR PT'S ELEVATED FEVER.
--- NOTE | 2018-09-16 18:02 | NUR ---
RECHECKED VITAL SIGNS AT 18:00. VITAL SIGNS ARE FOLLOWS: BP 115/71, HR 94, O2 94 (ROOM AIR), TEMP 101.3 (AXILLARY), RR 20. MAINTAINING COOLING MEASURES (ICE PACKS, NO BLANKETS, COOL ROOM). WILL CONTINUE TO MONITOR. PT'S FAMILY AT BEDSIDE.
--- NOTE | 2018-09-16 19:31 | NUR ---
PT ENDORSED TO SENIOR IT AUDITOR NURSE IN STABLE CONDITION.
--- NOTE | 2018-09-16 19:32 | NUR ---
RECEIVED REPORT FROM DAY SHIFT NURSE GWENDOLYN-RN AT BEDSIDE. FAMILY AT BEDSIDE. PT SLEEPING AOX1-CONFUSED, SPEAKS LAUTIAN/MOSOTHO. ON ROOM AIR WITH RIGHT FA @20G INFUSING D5%/ NS 0/9% @ 100ML/HR. DISCUSSED PLAN OF CARE HOWEVER PT IS CONFUSED ACCORDING TO DAUGHTER. NO S/S OF RESPIRATORY DISTRESS OR DISCOMFORT NOTED AT THIS TIME. BED IN LOWEST POSITION, BED BREAKS ON, BOTH SIDE RAILS UP AND FALL PRECAUTIONS IN PLACE. SEIZURE PRECAUTIONS IN PLACE. BEDSIDE TABLE AND CALL LIGHT ARE WITHIN REACH. WILL CONTINUE TO MONITOR.
[2018-09-16 20:00] VITALS: BP 117/69
--- NOTE | 2018-09-16 20:00 | NUR ---
VITAL SIGNS TAKEN AND TOLERATED WELL. INCREASED TEMPERATURE NOTED. EDUCATED FAMILY ON ONLY USING BED SHEET FOR COMFORT MEASURES AND USING ICE PACKS TO DECREASE TEMPERATURE. FAMILY CONTINUES TO COVER PT WITH BLANKET WHEN PT SAYS SHE IS COLD. WILL CONTINUE TO EDUCATE. NO S/S OF RESPIRATORY DISTRESS OR DISCOMFORT NOTED AT THIS TIME. WILL CONTINUE TO MONITOR.
[2018-09-16] MEDS: ENOXAPARIN 60 MG/0.6 ML SYR SUBQ SCH (20:38)
--- NOTE | 2018-09-16 20:38 | NUR ---
SCHEDULED MEDICATION LOVENOX GIVEN SUBQ ON RIGHT SIDE OF UMBILICAL ABDOMEN. NO S/S OF RESPIRATORY DISTRESS OR DISCOMFORT NOTED AT THIS TIME. WILL CONTINUE TO MONITOR.
--- NOTE | 2018-09-16 22:00 | NUR ---
TEMPERATURE HAS INCREASED TO 102.2F. EDUCATED PT FAMILY THAT PT WILL CONTINUE TO HAVE A TEMPERATURE UNTIL THEY STOP TO COVER PT WITH BLANKETS WHEN SHE STATES THAT SHE IS COLD. WILL MEDICATE WITH TORADOL. NO S/S OF RESPIRATORY DISTRESS OR DISCOMFORT NOTED AT THIS TIME. WILL CONTINUE TO MONITOR.
[2018-09-17] VITALS: BP 119/75
--- NOTE | 2018-09-17 | NUR ---
VITAL SIGNS TAKEN AND TOLERATED WELL. TEMPERATURE HAS DECREASED TO 100.2F. FOUND PT WITH BLANKETS AND EDUCATED PT TO NOT COVER PT WITH BLANKET WHEN SHE STATES SHE IS COLD. PT WILL CONTINUE TO HAVE A FEVER IF SHE IS COVERED WITH BLANKET. LEFT ONLY BED SHEET AND ICE PACKS. NO S/S OF RESPIRATORY DISTRESS OR DISCOMFORT NOTED AT THIS TIME. WILL CONTINUE TO MONITOR.
--- NOTE | 2018-09-17 02:00 | NUR ---
PT CONTINUES TO SLEEP. NO S/S OF RESPIRATORY DISTRESS OR DISCOMFORT NOTED AT THIS TIME. WILL CONTINUE TO MONITOR.
[2018-09-17 04:00] VITALS: BP 121/85
--- NOTE | 2018-09-17 04:00 | NUR ---
VITAL SIGNS TAKEN AND TOLERATED WELL. TEMPERATURE DECREASING. WILL CONTINUE COOLING MEASURES. NO S/S OF RESPIRATORY DISTRESS OR DISCOMFORT NOTED AT THIS TIME. WILL CONTINUE TO MONITOR.
--- NOTE | 2018-09-17 06:00 | NUR ---
PT CONTINUES TO SLEEP IN BED. NO S/S OF RESPIRATORY DISTRESS OR DISCOMFORT NOTED AT THIS TIME. WILL CONTINUE TO MONITOR.
[2018-09-17 06:05] LABS: T4 (THYROXINE) 6.1 ug/dL (4.5-12.0)
[2018-09-17] MEDS: DEXT 5% /NACL 0.9% 1,000 ML IV SCH ×3 (06:39→20:23)
--- NOTE | 2018-09-17 07:29 | NUR ---
ENDORSED PT CARE TO DAY SHIFT NURSE PADMA -ALLEGRA FOR CONTINUITY OF CARE.
--- NOTE | 2018-09-17 07:30 | NUR ---
RECEIVED REPORT FROM PM NURSE , PT SLEEPING , AT BEDSIDE. SPEAKS LAUTIAN/GREGOR. ON ROOM AIR . NO SOB .RIGHT FA @20G INFUSING D5%/ NS 0/9% @ 100ML/HR. DISCUSSED PLAN OF CARE WITH PT'S . BED IN LOWEST POSITION, BOTH SIDE RAILS UP AND FALL PRECAUTIONS IN PLACE. SEIZURE PRECAUTIONS IN PLACE. BEDSIDE TABLE AND CALL LIGHT ARE WITHIN REACH. WILL CONTINUE TO MONITOR.
[2018-09-17 07:57] LABS: BASOPHILS % (AUTO) 0.2 % (0.0-2.0); EOSINOPHILS # (AUTO) 0.1 K/uL (0-0.4); EOSINOPHILS % (AUTO) 0.7 % (0.0-4.0); HEMATOCRIT 34.9 % (36-48); HEMOGLOBIN 11.4 g/dL (12.0-16.0); MEAN CORPUSCULAR HEMOGLOBIN 30 pg (27-31); MEAN CORPUSCULAR HGB CONC 33 g/dL (33-37); MEAN CORPUSCULAR VOLUME 90.6 fL (80-94); MONOCYTES # (AUTO) 0.6 K/uL (0.8-1.0); NEUTROPHILS # (AUTO) 10.6 K/uL (1.8-7.7); NEUTROPHILS % (AUTO) 86.1 % (42.2-75.2); PLATELET COUNT (AUTO) 153 K/uL (140-450); RED BLOOD CELL COUNT(AUTO) 3.85 MIL/uL (4.20-5.40); RED CELL DISTRIBUTION WIDTH 15.2 % (11.6-13.7); WHITE BLOOD COUNT (AUTO) 12.3 K/uL (4.8-10.8)
[2018-09-17 08:00] VITALS: BP 128/83
[2018-09-17 08:23] LABS: CARBON DIOXIDE 26.4 mmol/L (21-32); CREATININE 0.7 mg/dL (0.6-1.3)
[2018-09-17 08:43] LABS: ANION GAP 5.9 (8-16); POTASSIUM 3.3 mmol/L (3.5-5.1)
--- NOTE | 2018-09-17 09:00 | NUR ---
PT IS MORE AWAKE RIGHT NOW, BUT STILL SLEEPY. AT BEDSIDE.
[2018-09-17] MEDS ORDERED: POTASSIUM CHLORIDE 40 MEQ, LIDOCAINE 1% 25 MG in NACL 0.9% 250 ML IV SCH (10:00)
[2018-09-17] MEDS: ENOXAPARIN 60 MG/0.6 ML SYR SUBQ SCH ×2 (10:06→20:23)
[2018-09-17] MEDS ORDERED: TAMSULOSIN 0.4 MG CAP PO SCH (10:12)
[2018-09-17 11:27] LABS: ALBUMIN 2.6 g/dL (3.4-5.0); BILIRUBIN,DIRECT 0.2 mg/dL (0.0-0.3); TOTAL BILIRUBIN 0.9 mg/dL (0.0-1.0)
[2018-09-17 12:00] VITALS: BP 117/78
--- NOTE | 2018-09-17 14:58 | NUR ---
09/17/18 RD INITIAL ASSESSMENT COMPLETED PLEASE REFER TO NUTRITION ASSESSMENT UNDER CARE ACTIVITY FOR ESTIMATED NUTRITIONAL NEEDS. 1. CONTINUE FULL LIQUID DIET TOLERATED 2. CONSIDER ADVANCING TO SOFT DIET TOLERATED 3. RD TO FOLLOW-UP 3-5 DAYS, MODERATE RISK KAMALA ESTEBAN, RD
[2018-09-17 16:00] VITALS: BP 106/62
[2018-09-17 16:11] LABS: MAGNESIUM 1.9 mg/dL (1.8-2.4); PHOSPHORUS 3.7 mg/dL (2.5-4.9)
[2018-09-17] MEDS: PIPER/TAZO 3.375GM/D5W PREMIX 50 ML IV SCH (17:26)
--- NOTE | 2018-09-17 17:30 | NUR ---
PT TEMP DECREASED TO 99.5 AT THIS TIME. ICE BAGS GIVEN. TOLD PT'S FAMILY DO NOT COVER PT WITH HOME BLANKET . PT'S FAMILY VERBALIZED UNDERSTANDING.
--- NOTE | 2018-09-17 19:20 | NUR ---
RECEIVED REPORT FROM DAY SHIFT NURSE PADMA-RN AT BEDSIDE. FAMILY AT BEDSIDE. PT SLEEPING AOX1-CONFUSED, SPEAKS LAUTIAN/GUINEAN. ON ROOM AIR WITH RIGHT FA @20G INFUSING D5%/ NS 0/9% @ 100ML/HR. DISCUSSED PLAN OF CARE HOWEVER PT IS CONFUSED. NO S/S OF RESPIRATORY DISTRESS OR DISCOMFORT NOTED AT THIS TIME. BED IN LOWEST POSITION, BED BREAKS ON, BOTH SIDE RAILS UP AND FALL PRECAUTIONS IN PLACE. SEIZURE PRECAUTIONS IN PLACE. BEDSIDE TABLE AND CALL LIGHT ARE WITHIN REACH. WILL CONTINUE TO MONITOR.
[2018-09-17 20:00] VITALS: BP 109/67
--- NOTE | 2018-09-17 20:00 | NUR ---
VITAL SIGNS TAKEN AND TOLERATED WELL. TEMPERATURE ELEVATED 100.1F DUE TO FAMILY CONTINUING TO USE HOME BLANKETS FOR PT. REMOVED BLANKETS AND EDUCATED FAMILY TO NOT COVER PT WITH BLANKET BECAUSE THAT INCREASES PT FEVER. COOLING PRECAUTIONS IN PLACE. NO S/S OF RESPIRATORY DISTRESS OR DISCOMFORT NOTED AT THIS TIME. WILL CONTINUE TO MONITOR.
--- NOTE | 2018-09-17 20:23 | NUR ---
SCHEDULED MEDICATION LOVENOX GIVEN AND TOLERATED WELL. NO S/S OF RESPIRATORY DISTRESS OR DISCOMFORT NOTED AT THIS TIME. WILL CONTINUE TO MONITOR.
--- NOTE | 2018-09-17 22:00 | NUR ---
PT CONTINUES TO SLEEP IN BED. NO S/S OF RESPIRATORY DISTRESS OR DISCOMFORT NOTED AT THIS TIME. WILL CONTINUE TO MONITOR.
[2018-09-18] VITALS: BP 131/72
--- NOTE | 2018-09-18 | NUR ---
VITAL SIGNS TAKEN AND TOLERATED WELL. TEMPERATURE DECREASED TO 99.9F. CONTINUE TO EDUCATE FAMILY TO NOT USE HOME BLANKETS BECAUSE THAT INCREASES PT TEMPERATURE. REMOVED BLANKETS AND WILL CONTINUE COOLING MEASURES. NO S/S OF RESPIRATORY DISTRESS OR DISCOMFORT NOTED AT THIS TIME. WILL CONTINUE TO MONITOR.
[2018-09-18] MEDS: PIPER/TAZO 3.375GM/D5W PREMIX 50 ML IV SCH ×5 (00:11→23:19)
--- NOTE | 2018-09-18 00:11 | NUR ---
SCHEDULED MEDICATION ZOSYN GIVEN AND TOLERATED WELL. NO S/S OF RESPIRATORY DISTRESS OR DISCOMFORT NOTED AT THIS TIME. WILL CONTINUE TO MONITOR.
--- NOTE | 2018-09-18 02:00 | NUR ---
PT CONTINUES TO SLEEP IN BED. NO S/S OF RESPIRATORY DISTRESS OR DISCOMFORT NOTED AT THIS TIME. WILL CONTINUE TO MONITOR.
[2018-09-18 04:00] VITALS: BP 116/71
--- NOTE | 2018-09-18 04:00 | NUR ---
PT CONTINUES TO SLEEP IN BED. NO S/S OF RESPIRATORY DISTRESS OR DISCOMFORT NOTED AT THIS TIME. WILL CONTINUE TO MONITOR.
[2018-09-18] MEDS: KETOROLAC 15 MG/ML VIAL IVP PRN (04:13)
--- NOTE | 2018-09-18 05:28 | NUR ---
SCHEDULED MEDICATION ZOSYN GIVEN AND TOLERATED WELL. NO S/S OF RESPIRATORY DISTRESS OR DISCOMFORT NOTED AT THIS TIME. WILL CONTINUE TO MONITOR.
--- NOTE | 2018-09-18 07:24 | NUR ---
ENDORSED PT CARE TO DAY SHIFT NURSE PAPI FOR CONTINUITY OF CARE.
--- NOTE | 2018-09-18 07:50 | NUR ---
PATIENT WAS SLEEPING COMFORTABLY. RESPIRATION EVEN, UNLABOR ON ROOM AIR. SKIN DRY AND WARM. IV PATENT AND INTACT. FLACC 0. NO FEVER AT THIS TIME. PLAN OF CARE WAS DISCUSSED WITH PATIENT. BED AT LOW POSITION, SIDE RAILS UP. CALL LIGHT WITHIN REACH
[2018-09-18 08:00] VITALS: BP 98/58
[2018-09-18] MEDS: TAMSULOSIN 0.4 MG CAP PO SCH (08:41)
--- NOTE | 2018-09-18 09:15 | NUR ---
PATIENT WAS SLEEPING COMFORTABLY. NO DISTRESS NOTED AT THIS TIME
--- NOTE | 2018-09-18 09:30 | NUR ---
P.T. NOTES UNABLE TO SEE FOR P.T. SERVICES DUE TO PATIENT WAS SOUND ASLEEP AND PER FAMILIES AT BEDSIDE TO LET HER REST AND SLEEP AT THIS TIME. PLAN: WE'LL FOLLOW UP AGAIN ON THE NEXT P.T. SCHEDULED VISIT IF SHE REMAINS IN THIS HOSPITAL.
[2018-09-18 10:14] LABS: BASOPHILS % (AUTO) 0.3 % (0.0-2.0); EOSINOPHILS # (AUTO) 0.2 K/uL (0-0.4); EOSINOPHILS % (AUTO) 3.4 % (0.0-4.0); HEMOGLOBIN 10.4 g/dL (12.0-16.0); LYMPHOCYTES % (AUTO) 14.4 % (20.5-51.1); MEAN CORPUSCULAR HEMOGLOBIN 30 pg (27-31); MEAN CORPUSCULAR HGB CONC 33 g/dL (33-37); MEAN CORPUSCULAR VOLUME 91.2 fL (80-94); MONOCYTES # (AUTO) 0.4 K/uL (0.8-1.0); NEUTROPHILS # (AUTO) 5.2 K/uL (1.8-7.7); NEUTROPHILS % (AUTO) 75.9 % (42.2-75.2); PLATELET COUNT (AUTO) 139 K/uL (140-450); RED BLOOD CELL COUNT(AUTO) 3.51 MIL/uL (4.20-5.40); RED CELL DISTRIBUTION WIDTH 15.5 % (11.6-13.7); WHITE BLOOD COUNT (AUTO) 6.9 K/uL (4.8-10.8)
[2018-09-18 10:43] LABS: ANION GAP 9.7 (8-16); CARBON DIOXIDE 24.5 mmol/L (21-32); POTASSIUM 3.2 mmol/L (3.5-5.1)
[2018-09-18] MEDS: NACL 0.9% 1,000 ML IV SCH (11:20)
--- NOTE | 2018-09-18 11:45 | NUR ---
PATIENT WAS SLEEPING COMFORTABLY. RESPIRATION EVEN, UNLABOR ON ROOM AIR. NO DISTRESS NOTED AT THIS TIME. VS IS STABLE. FAMILY AT BEDSIDE. CALL LIGHT WITHIN REACH
[2018-09-18 12:00] VITALS: BP 104/65
--- NOTE | 2018-09-18 12:09 | NUR ---
DR. BAEZ WAS MADE AWARE OF PATIENT'S POTASSIUM 3.2, AWAITING FOR NEW ORDER
[2018-09-18] MEDS ORDERED: POTASSIUM CHLORIDE 40 MEQ, LIDOCAINE MPF 1% - 5 mL VIAL 25 MG in NACL 0.9% 250 ML IV SCH (13:30)
--- NOTE | 2018-09-18 14:08 | NUR ---
PATIENT WAS SLEEPING COMFORTABLY. RESPIRATION EVEN, UNLABOR ON ROOM AIR. NO DISTRESS NOTED AT THIS TI ME. FAMILY IS AT BEDSIDE
[2018-09-18 16:00] VITALS: BP 111/68
--- NOTE | 2018-09-18 16:00 | NUR ---
PATIENT WAS AWAKE, DROWSY, ABLE TO ANSWER QUESTIONS. RESPIRATION EVEN, UNLABOR ON ROOM AIR. VS IS STABLE. NO FEVER AT THIS TIME. PERINEAL CARE WAS GIVEN. NO DISTRESS NOTED AT THIS TIME. FAMILY AT BEDSIDE. CALL LIGHT WITHIN REACH
--- NOTE | 2018-09-18 18:22 | NUR ---
PATIENT WAS SLEEPING COMFORTABLY, RESPONSIVE TO TOUCH. RESPIRATION EVEN\, UNLABOR ON ROOM AIR. IV PATENT AND INTACT. NO DISTRESS NOTED AT THIS TIME. CALL LIGHT WITHIN REACH. FAMILY IS AT BEDSIDE
--- NOTE | 2018-09-18 19:15 | NUR ---
ENDORSEMENT GIVEN TO CUSTOMER [employer]VOCATE NURSE. PATIENT IS STABLE AT THIS TIME
--- NOTE | 2018-09-18 19:16 | NUR ---
RECEIVED REPORT FROM DAY SHIFT NURSE CLAU-RN AT BEDSIDE. FAMILY AT BEDSIDE. PT SLEEPING AOX1-CONFUSED, SPEAKS LAUTIAN/GREGOR. ON ROOM AIR WITH RIGHT FA @20G INFUSING D5%/ NS 0/9% @ 50ML/HR. DISCUSSED PLAN OF CARE HOWEVER PT IS CONFUSED. NO S/S OF RESPIRATORY DISTRESS OR DISCOMFORT NOTED AT THIS TIME. BED IN LOWEST POSITION, BED BREAKS ON, BOTH SIDE RAILS UP AND FALL PRECAUTIONS IN PLACE. SEIZURE PRECAUTIONS IN PLACE. BEDSIDE TABLE AND CALL LIGHT ARE WITHIN REACH. WILL CONTINUE TO MONITOR.
[2018-09-18 20:00] VITALS: BP 93/55
--- NOTE | 2018-09-18 20:00 | NUR ---
VITAL SIGNS TAKEN AND TOLERATED WELL. TEMPERATURE ELEVATED AND COOLING MEASURES IN PLACE. EDUCATED PT FAMILY TO NOT COVER PT WITH BLANKETS TO ALLOW TEMPERATURE TO CONTINUE TO DECREASE. BLANKETS TAKEN OFF AND ONLY BED SHEET GIVEN TO PT FOR COMFORT. NO S/S OF RESPIRATORY DISTRESS OR DISCOMFORT NOTED AT THIS TIME. WILL CONTINUE TO MONITOR.
--- NOTE | 2018-09-18 22:00 | NUR ---
PT CONTINUES TO SLEEP IN BED. NO S/S OF RESPIRATORY DISTRESS OR DISCOMFORT NOTED AT THIS TIME. WILL CONTINUE TO MONITOR.
--- NOTE | 2018-09-18 23:19 | NUR ---
SCHEDULED MEDICATION ZOSYN GIVEN AND TOLERATED WELL. NO S/S OF RESPIRATORY DISTRESS OR DISCOMFORT NOTED AT THIS TIME. WILL CONTINUE TO MONITOR.
[2018-09-19] VITALS: BP 121/78
--- NOTE | 2018-09-19 | NUR ---
VITAL SIGNS TAKEN AND TOLERATED WELL. NO S/S OF RESPIRATORY DISTRESS OR DISCOMFORT NOTED AT THIS TIME. WILL CONTINUE TO MONITOR.
--- NOTE | 2018-09-19 02:00 | NUR ---
PT CONTINUES TO SLEEP IN BED. NO S/S OF RESPIRATORY DISTRESS OR DISCOMFORT NOTED AT THIS TIME. WILL CONTINUE TO MONITOR.
[2018-09-19 04:00] VITALS: BP 116/73
--- NOTE | 2018-09-19 04:00 | NUR ---
VITAL SIGNS TAKEN AND TOLERATED WELL. TEMPERATURE CONTINUES TO BE ELEVATED. EDUCATED FAMILY TO NOT USE THEIR HOME BLANKETS TO HELP REDUCE TEMPERATURE. BLANKETS WERE REMOVED AND BED SHEETS WERE LEFT FOR COMFORT MEASURES. COOLING MEASURES IN PLACE. NO S/S OF RESPIRATORY DISTRESS OR DISCOMFORT NOTED AT THIS TIME. WILL CONTINUE TO MONITOR.
[2018-09-19] MEDS: PIPER/TAZO 3.375GM/D5W PREMIX 50 ML IV SCH ×4 (05:13→23:42)
--- NOTE | 2018-09-19 05:13 | NUR ---
SCHEDULED MEDICATION ZOSYN GIVEN AND TOLERATED WELL. NO S/S OF RESPIRATORY DISTRESS OR DISCOMFORT NOTED AT THIS TIME. WILL CONTINUE TO MONITOR.
[2018-09-19] MEDS: NACL 0.9% 1,000 ML IV SCH ×2 (06:35→17:28)
--- NOTE | 2018-09-19 07:32 | NUR ---
ENDORSED PT CARE TO DAY SHIFT NURSE ABDON-ALLEGRA FOR CONTINUITY OF CARE.
--- NOTE | 2018-09-19 07:33 | NUR ---
RECEIVED REPORT FROM DIE REPAIR AT BEDSIDE, PT IS AAOX1, CONFUSED WITH TIME AND PLACE, FOLLOW COMMANDS AND MAKE NEEDS KNOWN, NO S/S OF DISTRESS, CLEAR LUNG SOUNDS MAREN. ON RA, O2 SAT 98%, DENIES CHEST PAIN, SB ON TELE MONITOR, SOFT ABDOMEN WITH ACTIVE BOWEL SOUNDS, ABDOMINAL PAIN NOTED 5/10 , INCONTINENT WITH B&b'S, ABLE TO MOVE ALL EXTREMITIES, GENERALIZED WEAKNESS NOTED, SKIN IS WARM AND DRY TO TOUCH, NO OPEN WOUND PRESENT, IV SITE TO RIGHT FOREARM, 20GA, RUNNING NS AT 50 ML/HR, VSS, POC EXPLAINED TO FAMILY MEMBERS, HOB ELEVATED TO 30 DEGREES, SAFETY MEASURE AND SEIZURE PRECAUTION IN PLACE, CALL LIGHT WITHIN REACH, WILL CONTINUE TO MONITOR.
[2018-09-19 08:00] VITALS: BP 143/77
--- NOTE | 2018-09-19 09:00 | NUR ---
SCHEDULED MEDICATION GIVEN, PT TOLERATED WELL.
[2018-09-19] MEDS: TAMSULOSIN 0.4 MG CAP PO SCH (09:04)
[2018-09-19] MEDS ORDERED: BISACODYL 5 MG TABEC PO PRN (09:25)
[2018-09-19] MEDS ORDERED: SODIUM PHOSPHATE 118 ML ENEM RC SCH (10:44)
--- NOTE | 2018-09-19 11:30 | NUR ---
FLEET ENEMA GIVEN, PT TOLERATED WELL, NO BOWEL MOVEMENT AT THIS TIME.
[2018-09-19 12:00] VITALS: BP 145/83
--- NOTE | 2018-09-19 12:00 | NUR ---
VSS, PT C/O ABDOMINAL PAIN, STATED WANTED TO , PT'S DAUGHTER AT BEDSIDE, DR. SNYDER MADE AWARE.
--- NOTE | 2018-09-19 12:15 | NUR ---
PT HAD A BOWEL MOVEMENT AT THIS TIME, DR. SNYDER MADE AWARE.
--- NOTE | 2018-09-19 12:31 | NUR ---
REPORT GIVEN TO ALLEGRA LIEBERMAN AT BEDSIDE FOR CONTINUE OF CARE, PT IS IN STABLE CONDITION AT THIS TIME.
[2018-09-19 15:49] LABS: BASOPHILS % (AUTO) 0.3 % (0.0-2.0); EOSINOPHILS # (AUTO) 0.2 K/uL (0-0.4); EOSINOPHILS % (AUTO) 2.8 % (0.0-4.0); HEMATOCRIT 32.1 % (36-48); HEMOGLOBIN 10.5 g/dL (12.0-16.0); LYMPHOCYTES # (AUTO) 1.2 K/uL (2.5-16.5); LYMPHOCYTES % (AUTO) 15.5 % (20.5-51.1); MEAN CORPUSCULAR HEMOGLOBIN 29 pg (27-31); MEAN CORPUSCULAR HGB CONC 33 g/dL (33-37); MEAN CORPUSCULAR VOLUME 89.8 fL (80-94); MONOCYTES # (AUTO) 0.6 K/uL (0.8-1.0); MONOCYTES % (AUTO) 7.1 % (1.7-9.3); NEUTROPHILS % (AUTO) 74.3 % (42.2-75.2); PLATELET COUNT (AUTO) 196 K/uL (140-450); RED BLOOD CELL COUNT(AUTO) 3.57 MIL/uL (4.20-5.40); RED CELL DISTRIBUTION WIDTH 14.7 % (11.6-13.7); WHITE BLOOD COUNT (AUTO) 8.1 K/uL (4.8-10.8)
[2018-09-19 16:17] LABS: CARBON DIOXIDE 23.2 mmol/L (21-32); POTASSIUM 3.2 mmol/L (3.5-5.1)
[2018-09-19 17:30] VITALS: BP 149/83
--- NOTE | 2018-09-19 17:30 | NUR ---
PATIENT HAD A BM. STOOL LOOSE AND MODERATE IN AMOUNT. ABD DISTENSION NOTED. MADE DR SNYDER AWARE
--- NOTE | 2018-09-19 18:42 | NUR ---
PATIENT BEING EVALUATED BY DR LOVETT
[2018-09-19] MEDS ORDERED: POTASSIUM CHLORIDE 10 MEQ TABER PO SCH (19:00)
[2018-09-19] MEDS: DEXT 5% / NACL 0.45% 1,000 ML IV SCH (19:19)
--- NOTE | 2018-09-19 19:35 | NUR ---
PATIENT REPORT GIVEN AT BEDSIDE. PATIENT ENDORSED IN STABLE CONDITION
--- NOTE | 2018-09-19 19:36 | NUR ---
RECD. RESTING IN BED, AWAKE, CONFUSED, SPEAKING "I GONNA NOW", REPEATEDLY. IV OF D51/2 NS AT 50 L/HR INFUSING, RIGHT FOREARM G20. SIDE RAILS PADDED, ON SEIZURE PRECAUTION. DAUGHTER ATTENDING TO PATIENT NEEDS AT THE BEDSIDE. NO APPEARANCE OF PAIN NOTED 0/10. WILL CONTINUE TO MONITOR BEHAVIOR.
[2018-09-19 20:00] VITALS: BP 108/60
--- NOTE | 2018-09-19 21:00 | NUR ---
SLEEPING COMFORTABLY IN BED.
--- NOTE | 2018-09-19 21:40 | NUR ---
Patient's Plan of Care was discussed and reviewed with DEVELOPMENT EXPERT: SIDNEY RODRIGUEZ
[2018-09-20] VITALS: BP 128/68
--- NOTE | 2018-09-20 | NUR ---
HAD LOOSE BM. MODERATE AMOUNT. CLEANSED AND MADE COMFORTABLE IN BED.
[2018-09-20] MEDS: PIPER/TAZO 3.375GM/D5W PREMIX 50 ML IV SCH ×3 (05:26→17:22)
[2018-09-20] MEDS: LORazepam 2 MG/ML VIAL IVP PRN (05:26)
--- NOTE | 2018-09-20 05:26 | NUR ---
WITH AGITATION, MEDICATED BY ALLEGRA ALFRED WITH ATIVAN ORDERED.
--- NOTE | 2018-09-20 05:56 | NUR ---
NO AGITATION NOTED, SLEEPING COMFORTABLY IN BED.
--- NOTE | 2018-09-20 07:30 | NUR ---
ENDORSED TO AM SHIFT NURSES FOR CONTINUITY OF CARE. NO SEIZURE NOTED, SAFETY MAINTAINED DURING SHIFT, FAMILY WATCHES PATIENT.
--- NOTE | 2018-09-20 07:31 | NUR ---
RECEIVED BEDSIDE REPORT FROM PM NURSE. PT SLEEPING BUT AROUSABLE. SAFETY MEASURES IN PLACE. AT THE BEDSIDE. NO SEIZURES NOTED. PLAN OF CARE REVIEWED. WILL CONTINUE TO MONITOR.
[2018-09-20 08:00] VITALS: BP 126/79
[2018-09-20 08:21] LABS: BASOPHILS % (AUTO) 0.4 % (0.0-2.0); EOSINOPHILS # (AUTO) 0.2 K/uL (0-0.4); HEMATOCRIT 30.2 % (36-48); HEMOGLOBIN 10.1 g/dL (12.0-16.0); LYMPHOCYTES # (AUTO) 0.7 K/uL (2.5-16.5); LYMPHOCYTES % (AUTO) 9.9 % (20.5-51.1); MEAN CORPUSCULAR HEMOGLOBIN 30 pg (27-31); MEAN CORPUSCULAR HGB CONC 34 g/dL (33-37); MEAN CORPUSCULAR VOLUME 89.1 fL (80-94); MONOCYTES # (AUTO) 0.5 K/uL (0.8-1.0); MONOCYTES % (AUTO) 6.9 % (1.7-9.3); NEUTROPHILS % (AUTO) 79.8 % (42.2-75.2); PLATELET COUNT (AUTO) 188 K/uL (140-450); RED BLOOD CELL COUNT(AUTO) 3.39 MIL/uL (4.20-5.40); RED CELL DISTRIBUTION WIDTH 14.7 % (11.6-13.7); WHITE BLOOD COUNT (AUTO) 7.5 K/uL (4.8-10.8)
[2018-09-20] MEDS: TAMSULOSIN 0.4 MG CAP PO SCH (09:09)
[2018-09-20 09:10] LABS: ANION GAP 14.6 (8-16); CARBON DIOXIDE 22.8 mmol/L (21-32); CREATININE 1.2 mg/dL (0.6-1.3); POTASSIUM 3.4 mmol/L (3.5-5.1)
--- NOTE | 2018-09-20 09:10 | NUR ---
ADMINISTERED SCHEDULED MEDICATION. PT TOLERATED WELL. PT'S DIAPER CHANGED FOR LOOSE STOOL AND URINE. AT THE BEDSIDE.
[2018-09-20 09:26] LABS: MAGNESIUM 1.8 mg/dL (1.8-2.4); PHOSPHORUS 5.2 mg/dL (2.5-4.9)
[2018-09-20] MEDS ORDERED: POTASSIUM CHLORIDE 10 MEQ TABER PO SCH (09:55)
--- NOTE | 2018-09-20 11:46 | NUR ---
INCONTINENT OF STOOL ON BED, PT OUT OF BED WITHOUT ASSIST, PT CLEANED, GOWN CHANGED, LINEN CHANGED, PT ALERT, TALKING IN [place]OMBI[place] WITH ACCENT, WHEN ASKED REGARDING SI/HI, PT STATES "ME FEEL BETTER TODAY, YESTERDAY ME WANNA BECAUSE STOMACH PAIN" "ME NOT WANNA TODAY, ME HAD 2 POOPS TODAY, FEEL BETTER, ME NOT WANNA TODAY" AND SON AT BEDSIDE, DENIES ANY OTHER NEEDS WILL CONTINUE TO MONTIOR
--- NOTE | 2018-09-20 13:40 | NUR ---
PT SITTING UP RESTING QUIETLY, FAMILY MEMBERS AT BEDSIDE, PLAN OF CARE DISCUSSED, WILL CONTINUE TO MONITOR.
[2018-09-20 16:00] VITALS: BP 128/81
[2018-09-20] MEDS: DEXT 5% / NACL 0.45% 1,000 ML IV SCH (17:23)
--- NOTE | 2018-09-20 19:30 | NUR ---
RECEIVED REPORT TO AM NURSE FOR CONTINUITY OF CARE. C/O PAIN IV SITE AND LOOKS RED AND SWOLLEN, WILL CHANGE SITE JASMINE.
--- NOTE | 2018-09-20 19:30 | NUR ---
RECEIVED PT FROM AM NURSE, PT AWAKE ALERT AND ORIENTED, SPEAKS A LITTLE CHINESE, NO COMPLAINTS. C/O PAIN ON IV SITE AND APPEARS RED, WILL RESTART IV JASMINE.
--- NOTE | 2018-09-20 19:30 | NUR ---
ENDORSED PATIENT TO SHIFT LEADER NURSE BALDOMERO. PT AWAKE, ALERT, AND STABLE. AT THE BEDSIDE.
[2018-09-20 20:00] VITALS: BP 109/58
--- NOTE | 2018-09-20 20:00 | NUR ---
RESTARTED IV INTHE LEFT WEIST WITH #20 GAUGE WITH 1 STICK.
--- NOTE | 2018-09-20 21:00 | NUR ---
FAMILY OUT TO GO FOR A SHORT TIME. NURSE SAT WITH THE PT.
--- NOTE | 2018-09-20 23:00 | NUR ---
FAMILY IS BACK.
[2018-09-21] VITALS: BP 102/65
--- NOTE | 2018-09-21 | NUR ---
V/S TAKEN, NO COMPLAINTS.
[2018-09-21] MEDS: PIPER/TAZO 3.375GM/D5W PREMIX 50 ML IV SCH ×5 (00:16→23:18)
--- NOTE | 2018-09-21 02:00 | NUR ---
SLEEPING SOUNDLY, NO SIGN OF DISTRESS.
--- NOTE | 2018-09-21 05:00 | NUR ---
DR VALENCIA NOTIFIED REGARING PTS INCONTINENT DERMATITIS.
[2018-09-21] MEDS ORDERED: HYDRAGUARD CREAM TP SCH (05:40)
[2018-09-21 07:02] LABS: BASOPHILS % (AUTO) 0.7 % (0.0-2.0); EOSINOPHILS # (AUTO) 0.3 K/uL (0-0.4); EOSINOPHILS % (AUTO) 4.6 % (0.0-4.0); HEMATOCRIT 27.8 % (36-48); HEMOGLOBIN 9.2 g/dL (12.0-16.0); LYMPHOCYTES # (AUTO) 1.3 K/uL (2.5-16.5); LYMPHOCYTES % (AUTO) 21.5 % (20.5-51.1); MEAN CORPUSCULAR HEMOGLOBIN 30 pg (27-31); MEAN CORPUSCULAR HGB CONC 33 g/dL (33-37); MEAN CORPUSCULAR VOLUME 89.3 fL (80-94); MONOCYTES # (AUTO) 0.5 K/uL (0.8-1.0); MONOCYTES % (AUTO) 8.7 % (1.7-9.3); NEUTROPHILS # (AUTO) 3.8 K/uL (1.8-7.7); NEUTROPHILS % (AUTO) 64.5 % (42.2-75.2); PLATELET COUNT (AUTO) 197 K/uL (140-450); RED BLOOD CELL COUNT(AUTO) 3.12 MIL/uL (4.20-5.40); RED CELL DISTRIBUTION WIDTH 14.5 % (11.6-13.7); WHITE BLOOD COUNT (AUTO) 5.9 K/uL (4.8-10.8)
[2018-09-21 07:13] LABS: ANION GAP 12.3 (8-16); CARBON DIOXIDE 25.8 mmol/L (21-32); CREATININE 1.2 mg/dL (0.6-1.3); POTASSIUM 3.1 mmol/L (3.5-5.1)
--- NOTE | 2018-09-21 07:15 | NUR ---
REPORT RECIEVED FROM DATA ARCHITECT NURSE, PT SLEEPING QUIETLY IN NAD, RESP EVEN UNLABORED, SKIN WARM DRY COLOR WNL, AROUSES EASILY, DAUGHTER AT BEDSIDE, DENIES PAIN OR DISCOMFORT, DENIES SI/HI, POC REVIEWED, CT A/P WITH CONTRAST THIS AM, PT MADE AWARE OF NPO UNTIL STUDY DONE, IV CONTRAST CONSENT SIGNED, DR ECKERT AT BEDSIDE, NO IMMEDIATE NEEDS AT THIS TIME, ALL SAFETY MEASURES IN PLACE, WILL CONTINUE TO MONITOR.
[2018-09-21 07:17] LABS: MAGNESIUM 1.7 mg/dL (1.8-2.4); PHOSPHORUS 4.2 mg/dL (2.5-4.9)
[2018-09-21 08:00] VITALS: BP 118/75
--- NOTE | 2018-09-21 08:30 | NUR ---
UP AMBULATING WITH WALKER WITH PHYSICAL THERAPY, PT EMMY WELL. INCONTINENT OF URINE WHILE STANDING, PER DAUGHTER, PT IS AFRAID TO GO TO BATHROOM DUE TO IV TUBING ATTACHED TO HER. PT INSTRUCTED TO USE CALL LIGHT WHEN SHE NEEDS TO GO TO BATHROOM WITH ASSIST, PER DAUGHTER, PT PREFERS TO WEAR A DIAPER.
--- NOTE | 2018-09-21 08:48 | NUR ---
NEW PIV 20G STARTED TO RIGHT AC, PT EMMY WELL.
[2018-09-21] MEDS: TAMSULOSIN 0.4 MG CAP PO SCH (09:28)
--- NOTE | 2018-09-21 09:28 | NUR ---
ADMINISTERED SCHEDULED MEDICATION. INSTRUCTED PT REGARDING CT OF THE ABDOMEN TEST AND NPO ORDER. DAUGHTER AT THE BEDSIDE TRANSLATING. DAUGHTER AND PT VERBALIZED UNDERSTANDING. CONSENT FOR CT WAS GIVEN. PT STABLE. NO OTHER NEEDS AT THIS TIME.
--- NOTE | 2018-09-21 10:10 | NUR ---
PT CAME BACK TO THE UNIT FROM CT.
[2018-09-21] MEDS ORDERED: MAGNESIUM OXIDE 400 MG TAB PO SCH (10:29)
--- NOTE | 2018-09-21 12:00 | NUR ---
ADMINISTERED SCHEDULED ZOSYN. IV SITE WNL. NO OTHER NEEDS AT THIS TIME. DAUGHTER AT BEDSIDE.
--- NOTE | 2018-09-21 12:02 | NUR ---
JONATHAN NOTE FAXED PACKET TO [facility], ATTN: ANTOINETTE Addendum: 09/21/18 at 1216 by Charissa Caldwell CM *FCO CHAPPELL
--- NOTE | 2018-09-21 13:00 | NUR ---
MARIE CATHETER INSERTED 16 FR. 2600 ML OF URINE DRAINED. PT TOLERATED WELL. DAUGHTER AT THE BEDSIDE. MADE DR BAEZ AWARE.
[2018-09-21] MEDS ORDERED: MAGNESIUM HYDROXIDE 2400 MG/30 ML UDC PO SCH (13:22)
[2018-09-21] MEDS ORDERED: BISACODYL 10 MG SUPP RC SCH (13:22)
[2018-09-21] MEDS ORDERED: NACL 0.9% 1,000 ML IV SCH (15:15)
[2018-09-21 16:00] VITALS: BP_SYST 112; BP_SYST 137; BP_DIAS 71; BP_DIAS 81
--- NOTE | 2018-09-21 17:50 | NUR ---
PT REFUSES SUPPOSITORY, PT AND DAUGHTER WANTS TO SEE IF M.O.M. WILL WORK. WILL CONTINUE TO MONITR
--- NOTE | 2018-09-21 19:30 | NUR ---
ENDORSED PT TO ALLEGRA SUH FOR CONTINUITY OF CARE. DAUGHTER AT THE BEDSIDE. PT STABLE, SLEEPING, BUT EASILY AROUSABLE.
--- NOTE | 2018-09-21 19:31 | NUR ---
REPORT RECEIVED FROM AM NURSE AT BEDSIDE. PT IN STABLE CONDITION. AAOX1. INTRODUCED SELF TO PT AND FAMILY. BOARD UPDATED. NO COMPLAINTS OF PAIN. NO SOB. AFEBRILE. IV SITE L AC 20G AND L FA20G RUNNING D5NS@40ML/HR PATENT AND INTACT. SKIN WARM, DRY, AND INTACT WITH NO OPEN WOUNDS BUT THERE IS SACRAL REDNESS. PT HAS MARIE. BED LOCKED IN LOW POSITION. CALL SOUZA WITHIN REACH. SAFETY PRECAUTIONS IN PLACE. SEIZURE PRECAUTIONS IN PLACE.
[2018-09-21] MEDS: LORazepam 2 MG/ML VIAL IVP PRN (21:54)
--- NOTE | 2018-09-21 21:54 | NUR ---
ATIVAN GIVEN FOR AGITATION. PT TOLERATED WELL.
--- NOTE | 2018-09-21 23:18 | NUR ---
WONG HUNG AND RUNNING. PT TOLERATED WELL.
[2018-09-22] VITALS: BP 109/64
--- NOTE | 2018-09-22 01:05 | NUR ---
PT SLEEPING COMFORTABLY WITH FAMILY AT BEDSIDE. NO S/S OF DISTRESS NOTED. WILL CONTINUE TO MONITOR.
--- NOTE | 2018-09-22 03:20 | NUR ---
PT SLEEPING COMFORTABLY IN BED. NO S/S OF DISTRESS NOTED. BREATHING EVEN, UNLABORED, AND WNL. WILL CONTINUE TO MONITOR.
--- NOTE | 2018-09-22 04:10 | NUR ---
PT SLEEPING COMFORTABLY LEFT LATERAL. NO S/S OF DISTRESS NOTED. ALL NEEDS MET AT THIS TIME.
[2018-09-22] MEDS: PIPER/TAZO 3.375GM/D5W PREMIX 50 ML IV SCH ×2 (05:01→14:31)
--- NOTE | 2018-09-22 05:01 | NUR ---
WONG HUNG AND RUNNING. PT TOLERATING WELL.
--- NOTE | 2018-09-22 07:30 | NUR ---
REPORT GIVEN TO AM NURSE AT BEDSIDE. PT IN STABLE CONDITION.
--- NOTE | 2018-09-22 07:31 | NUR ---
RECEIVED BEDSIDE REPORT FROM PROJECT ADMINISTRATIVE ASSISTANT NURSE. PATIENT IS AWAKE, ALERT AND ORIENTEDX4. NO SIGNS OF DISTRESS ON RA. FAMILY AT BEDSIDE. IV ON R FA 20G SALINE LOCK. CLEAN, DRY AND INTACT. L FA 20G CLEAN, DRY AND INTACT. INFUSING D5NS AT 40. SKIN IS INTACT. INCONTINENT DERMATITIS. MARIE IN PLACE. PATIENT HAS WEAKNESS. AMBULATE W ASSIST. FALL RISK PROTOCOL IN PLACE. SEIZURE PRECAUTIONS. NO COMPLAINTS AT THIS TIME. BED IN LOW POSITION. CALL LIGHT WITHIN REACH. WILL CONTINUE TO MONITOR
[2018-09-22 08:00] VITALS: BP 134/75
[2018-09-22 08:00] LABS: BASOPHILS % (AUTO) 0.8 % (0.0-2.0); EOSINOPHILS # (AUTO) 0.3 K/uL (0-0.4); EOSINOPHILS % (AUTO) 5.5 % (0.0-4.0); HEMATOCRIT 29.1 % (36-48); LYMPHOCYTES # (AUTO) 1.2 K/uL (2.5-16.5); MEAN CORPUSCULAR HEMOGLOBIN 30 pg (27-31); MEAN CORPUSCULAR HGB CONC 34 g/dL (33-37); MEAN CORPUSCULAR VOLUME 88.2 fL (80-94); MONOCYTES # (AUTO) 0.5 K/uL (0.8-1.0); MONOCYTES % (AUTO) 8.7 % (1.7-9.3); NEUTROPHILS # (AUTO) 3.2 K/uL (1.8-7.7); PLATELET COUNT (AUTO) 215 K/uL (140-450); RED CELL DISTRIBUTION WIDTH 14.8 % (11.6-13.7); WHITE BLOOD COUNT (AUTO) 5.2 K/uL (4.8-10.8)
[2018-09-22 08:04] LABS: ANION GAP 12.2 (8-16); CARBON DIOXIDE 29.7 mmol/L (21-32); CREATININE 0.9 mg/dL (0.6-1.3)
[2018-09-22 08:13] LABS: POTASSIUM 2.9 mmol/L (3.5-5.1)
[2018-09-22 08:40] LABS: MAGNESIUM 1.7 mg/dL (1.8-2.4); PHOSPHORUS 3.7 mg/dL (2.5-4.9)
[2018-09-22] MEDS: TAMSULOSIN 0.4 MG CAP PO SCH (08:51)
--- NOTE | 2018-09-22 08:54 | NUR ---
ADMINISTERED MEDS. PATIENT TOLERATED WELL. WILL CONTINUE TO MONITOR THE PATIENT. FAMILY AT BEDSIDE
[2018-09-22] MEDS ORDERED: POTASSIUM CHLORIDE 10 MEQ TABER PO SCH (09:00)
[2018-09-22] MEDS ORDERED: POTASSIUM CHLORIDE 40 MEQ, LIDOCAINE MPF 1% - 5 mL VIAL 25 MG in NACL 0.9% 250 ML IV SCH (09:00)
[2018-09-22] MEDS ORDERED: TAMS0.4C96 PO (09:23)
[2018-09-22] MEDS ORDERED: LEVO750T2 PO (09:23)
[2018-09-22] MEDS ORDERED: POTA10TE30 PO (09:23)
--- NOTE | 2018-09-22 10:00 | NUR ---
PATIENT RESTING. NO SIGNS OF DISTRESS. WILL CONTINUE TO MONITOR THE PATIENT
--- NOTE | 2018-09-22 12:47 | NUR ---
PATIENT REFUSED LUNCH TRAY. SHE IS EATING A HOME COOKED MEAL. FAMILY AT BEDSIDE. WILL CONTINUE TO MONITOR THE PATIENT.
[2018-09-22] MEDS ORDERED: MAG SULF 2000 MG/WATER PREMIX 50 ML IV SCH ×2 (13:00→15:00)
--- NOTE | 2018-09-22 14:00 | NUR ---
PATIENT IS SLEEPING. NO SIGNS OF DISTRESS. BED IN LOW POSITION. CALL LIGHT WITHIN REACH
[2018-09-22 16:00] VITALS: BP 103/62
--- NOTE | 2018-09-22 16:00 | NUR ---
TOLD DR BAEZ THAT PATIENT CANNOT BE DISCHARGED D/T NO HOME HEALTH SERVICES BECAUSE THERE IS NO DIE CAST PATTERNMAKER TODAY. DR HOPSON SAID THAT PATIENT CAN STILL BE DISCHARGED HOME AND CM WILL WORK ON THE HOME HEALTH TOMORROW WHEN THEY ARE BACK. PATIENT WILL BE DISCHARGED TODAY.
--- NOTE | 2018-09-22 16:24 | NUR ---
PATIENT IN BED. NO SIGNS OF DISTRESS. FAMILY AT BEDSIDE
--- NOTE | 2018-09-22 17:00 | NUR ---
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 PATIENT WILL BE DISCHARGED TODAY BUT NEEDS HOME HEALTH PT AND CATH CARE. GAVE PATIENT A WALKER AND GAVE PATIENT 7 CATHETERS PRESCRIBED. EDUCATED DAUGHTER ON THE USE OF WALKER AND CATHS. I CONFIRMED THE ADDRESS AT [address] [place] [address]. [place] [address]. DAUGHTER SAID THE ADDRESS IS CORRECT. CM, PLEASE CALL DAUGHTER FOR HOME HEALTH INFORMATION. DAUGHTERS NAME IS YUNI, PHONE NUMBER IS [phone].
--- NOTE | 2018-09-22 17:53 | NUR ---
09/22/18 RD INITIAL ASSESSMENT COMPLETED PLEASE REFER TO NUTRITION PROGRESS NOTE UNDER CARE ACTIVITY FOR ESTIMATED NUTRITION NEEDS. RD RECOMMENDATIONS: 1. CONTINUE CARDIAC SOFT DIET TOLERATED 2. RD TO FOLLOW-UP 3-5 DAYS, MODERATE RISK CASEY LEZAMA MBA, RD
--- NOTE | 2018-09-22 17:56 | NUR ---
EDUCATED PATIENT AND DAUGHTERS ABOUT DISCHARGE, EDUCATED ON DISEASE PROCESS, ABN S/SX, EDUCATED ON MEDS AND GAVE PRESCRIPTIONS. EDUCATED ON HOW TO USE A STRAIGHT CATH IF NEEDED. GAVE [address] CHEEMA ORDER. EDUCATED ON WHEN TO GO TO THE ER. EDUCATED ON PNA AND FLU VACCINES, UP TO DATE. EDUCATED ON FOLLOW UP W PCP AND PSYCH. EDUCATED ON HOME HEALTH PT AND CATH CARE. PATIENT AND DAUGHTERS VERBALIZED UNDERSTANDING. ALL PAPERWORK SIGNED BY DAUGHTER KEKE. PATIENT LEFT IN STABLE CONDITION. IVS REMOVED, TIP INTACT. ID BANDS REMOVED. GAVE PATIENT A WALKER FOR HOME HEALTH PT.
--- NOTE | 2018-09-23 13:38 | NUR ---
CM NOTE I WAS REQUESTED BY JONATHAN AYOUB TO SEND INQUIRY FOR HOME HEALTH FOR THIS PATIENT WHO HAS [employer] INSURANCE AND FOR A WALKER. FAXED ORDER FOR HOME HEALTH AND WALKER TO [facility] [phone]. PER [facility] ALVAREZ PH# [phone] EXT [phone] TO SEND INQUIRY FOR [facility] HEALTH TO [facility], [facility], [facility], [facility] [place] [facility] AND TO CONTACT [facility] FOR THE DME. PER DIMITRIOS OF [facility], [facility] UNABLE TO TAKE [employer] PATIENTS AT THIS TIME. PER NICO OF [facility], THEY ARE UNABLE TO TAKE [employer] INSURANCE AT THIS TIME. PER SARINA SAINI OF [facility], THEIR CONTRACT IS AND CURRENTLY UNABLE TO TAKE [employer] PATIENTS. PER HAKEEM OF [facility], THEY HAVE NO AVAILABLE NURSES TO SEE PATIENT THE WHOLE WEEK. PER SERVANDO OF [facility], THEY HAVE FULL STAFF AND NO AVAILABLE NURSES TO SEE PATIENT. PER JONATHAN CREWS CHUCK OF [facility] PH# [phone] EXT [phone], TO SEND ORDER FOR WALKER TO [facility]. PER JONATHAN CREWS, NO NEED TO FAX HER ANY INFORMATION BECAUSE [facility] WILL SEND IT TO HER. FAXED ORDER FOR WALKER AND PT EVAL NOTES TO [facility]. LLUVIA OF [facility] PH# [phone] WAS INFORMED OF PATIENT'S HEIGHT AND WEIGHT AND THAT PATIENT WAS ALREADY DISCHARGED TO HOME. PER LLUVIA, [facility] WILL DELIVER THE WALKER TO PATIENT'S HOME BUT NO ETA AT THIS TIME BECAUSE THEY STILL HAVE TO WAIT FOR THE AUTHORIZATION FROM PATIENT'S MEDICAL GRP. JONATHAN AYOUB AWARE.
--- NOTE | 2018-09-24 08:21 | NUR ---
Called Ayla Morris and left message to call back [facility] CM.
== END 2018-09-22 17:56 | disposition home health service (06) | DRG 812 ==
LOC: MED 18:08 → MTU 23:23
PROVIDERS: ADMIT General Practice; ATTEND General Practice
DX: T43.591A Poisoning by other antipsychotics and neuroleptics, accidental (unintentional), initial encounter (principal); N17.0 Acute kidney failure with tubular necrosis; J69.0 Pneumonitis due to inhalation of food and vomit; A41.9 Sepsis, unspecified organism; G92 Toxic encephalopathy; E43 Unspecified severe protein-calorie malnutrition; E83.51 Hypocalcemia; I42.7 Cardiomyopathy due to drug and external agent; E87.6 Hypokalemia; F20.9 Schizophrenia, unspecified; F43.9 Reaction to severe stress, unspecified; N13.2 Hydronephrosis with renal and ureteral calculous obstruction; R33.0 Drug induced retention of urine; Z68.22 Body mass index [BMI] 22.0-22.9, adult; Z79.899 Other long term (current) drug therapy; Z83.3 Family history of diabetes mellitus; Y92.89 Other specified places as the place of occurrence of the external cause; Z81.8 Family history of other mental and behavioral disorders
CPT/HCPCS: 36415; 70450; 71045; 74018; 74150; 76770; 76830; 80048; 80053; 80076; 80305; 81003; 81025; 82150; 82550; 83036; 83605; 83690; 83735; 83880; 84100; 84436; 84439; 84443; 84479; 84484; 85025; 85610; 85730; 87040; 87081; 93005; 96360; 97110; 97116; 97530; 99285; C1758; G0480; G0482; J1650; J1885; J2001; J2060; J2543; J3475; J3480; J7030; J7042; Q0092; Q9967

== ENCOUNTER 2024-04-14 22:50 | Emergency (ER) | payer MEDICAID, OTHER ==
[~2024-04-14] VITALS: Ht 157.5 cm; Wt 63.5 kg
[~2024-04-14 22:50] MED LIST changes: +LEVO750T2 PO; -OLAN5TAB30 PO; +POTA10TA70 PO; +TAMS0.4C96 PO
[2024-04-14 23:00] VITALS: BP 128/80; PULSE 84; RESP 16; TEMP 97.8; O2SAT 95
[2024-04-15 00:05] LABS: BASOPHILS % (AUTO) 0.5 % (0.0-2.0); EOSINOPHILS # (AUTO) 0.1 K/uL (0-0.4); HEMATOCRIT 36.8 % (36-48); HEMOGLOBIN 12.2 g/dL (12.0-16.0); LYMPHOCYTES # (AUTO) 1.8 K/uL (2.5-16.5); LYMPHOCYTES % (AUTO) 21.3 % (20.5-51.1); MEAN CORPUSCULAR HEMOGLOBIN 29 pg (27-31); MEAN CORPUSCULAR HGB CONC 33 g/dL (33-37); MEAN CORPUSCULAR VOLUME 88.4 fL (80-94); MONOCYTES # (AUTO) 0.7 K/uL (0.8-1.0); MONOCYTES % (AUTO) 7.9 % (1.7-9.3); NEUTROPHILS % (AUTO) 69.3 % (42.2-75.2); PLATELET COUNT (AUTO) 205 K/uL (140-450); RED BLOOD CELL COUNT(AUTO) 4.17 MIL/uL (4.20-5.40); RED CELL DISTRIBUTION WIDTH 13.5 % (11.6-13.7); WHITE BLOOD COUNT (AUTO) 8.6 K/uL (4.8-10.8)
[2024-04-15] MEDS ORDERED: AZIT250T4 PO (00:44)
[2024-04-15 00:49] VITALS: BP 128/80; PULSE 84; RESP 16; TEMP 97.8; O2SAT 95
== END 2024-04-15 00:49 | disposition home or self-care (01) ==
LOC: MED 22:50
DX: R04.2 Hemoptysis (principal); J18.9 Pneumonia, unspecified organism; Z79.899 Other long term (current) drug therapy
CPT/HCPCS: 36415; 71045; 85025; 99284